=== PATIENT | female | born 1975 | race Hispanic/Latino ===

== ENCOUNTER 2019-01-01 08:37 | Emergency (ER) | payer BC ==
[2019-01-01 08:53] VITALS: RESP 20; BMI 32.1
--- NOTE | 2019-01-01 08:58 | ED PDOC ---
HPI: Trauma/Fall - HPI History Per: Patient History/Exam Limitations: no limitations Injury Occurred (Timing): Days Ago: (1) Location Of Injury: Left: Shoulder, Posterior: Back (Lumbar region) Pain Scale Rating Of: 6 Additional Complaint(s): Pt is a 43 y/o female with hx of R. Rotator cuff tear with repair (2014) presenting to ED for evaluation after falling yesterday morning and injuring her shoulder. She states she was tidying up around the house and tripped over furniture falling in her left shoulder and left side of face. She denies LOC. She states that when she got up she started experiencing left shoulder pain radiating down her arm associated with weakness. She also noticed mild low back pain which she feels is a pulled muscle. She has been taking Tylenol for the pain which minimally alleviates her pain. She denied any neck pain, headache, dizziness, jaw pain, numbness or tingling in her arm/fingers, or LE pain. PMD: Dr. Hurst <Misael Lorenzana - Last Filed: 01/02/19 08:06> Past Medical History Vital Signs: Last Vital Signs Temp 98.7 F 01/01/19 08:52 Pulse 70 01/01/19 08:52 Resp 20 01/01/19 08:52 BP 116/70 01/01/19 08:52 Pulse Ox 99 01/01/19 13:03 <Ileana Patel - Last Filed: 01/01/19 13:58> Reviewed: Historical Data, Nursing Documentation, Vital Signs Vital Signs: Last Vital Signs Temp 98.7 F 01/01/19 08:52 Pulse 70 01/01/19 08:52 Resp 20 01/01/19 08:52 BP 116/70 01/01/19 08:52 Pulse Ox 99 01/01/19 08:52 - Medical History PMH: Anxiety, Asthma - Surgical History Surgical History: No Surg Hx - Family History Family History: States: No Known Family Hx <Misael Lorenzana - Last Filed: 01/02/19 08:06> - Home Medications Home Medications: Ambulatory Orders Medication Instructions Recorded Ca/Cholecalciferol/Fe/Folic 1 1 tab PO DAILY 02/15/15 [Basic's Vitamins] Quetiapine Fumarate [Seroquel] 25 mg PO HS 02/15/15 - Allergies Allergies/Adverse Reactions: Allergies Allergy/AdvReac Type Severity Reaction Status Date / Time cefuroxime [From Ceftin] Allergy Mild RASH Verified 01/01/19 09:01 Penicillins Allergy Mild RASH Verified 01/01/19 09:01 SEAFOOD Allergy Mild RASH Uncoded 01/01/19 08:57 Physical Exam - Physical Exam Appears: Positive for: Well, No Acute Distress Skin: Positive for: Normal Color Eye Exam: Positive for: Normal appearance ENT: Positive for: Normal ENT Inspection Cardiovascular/Chest: Positive for: Regular Rate, Rhythm, Chest Non Tender Respiratory: Positive for: Normal Breath Sounds. Negative for: Crackles, Wheezing Pulses-Dorsalis Pedis (L): 2+ Pulses-Dorsalis Pedis (R): 2+ Pulses-Radial (L): 2+ Pulses-Radial (R): 2+ Back: Positive for: Muscle Spasm (Paraverebral (right side) with mild tenderness) Extremity: Positive for: Capillary Refill, Other (Left uper extremity- no gross deformities, Anterior palpable tenderness, no tenderness over cervical spine, clavicle, or humerus. Marked weakness, +Empty can test, neurovascular in tact. Difficulty raising 90 degrees above head.) DTR - Bicep (R): 2+ DTR - Bicep (L): 2+ Neurological/Psych: Positive for: Awake, Alert, Gait (normal), junior data analyst II-XII (in tact ). Negative for: Motor/Sensory Deficits, Facial Droop <Misael Lorenzana - Last Filed: 01/02/19 08:06> - ECG O2 Sat by Pulse Oximetry: 99 <Misael Lorenzana - Last Filed: 01/02/19 08:06> Medical Decision Making Medical Decision Making: Patient presents with complaints of right shoulder shoulder pain. Discussed XR results extensively with patient. <Ileana Patel Y - Last Filed: 01/01/19 13:58> Medical Decision Making: Pt is a 43 y/o female with hx of R. Rotator cuff tear with repair (2014) presenting to ED for evaluation after falling yesterday morning and injuring her shoulder. Toradol 30mg IM x1 Shoulder Xray 3 views Lumbar Xray <Misael Lorenzana - Last Filed: 01/02/19 08:06> Disposition <Ileana Patel - Last Filed: 01/01/19 13:58> - Patient ED Disposition Is Patient to be Admitted: No Counseled Patient/Family Regarding: Studies Performed, Diagnosis, Need For Followup - Disposition Disposition: Routine/Home Disposition Time: 14:00 <Neela Lorenzanagerry - Last Filed: 01/02/19 08:06> - Clinical Impression Clinical Impression: Shoulder pain, Avulsion injury of left shoulder region, Acute shoulder pain due to trauma - Disposition Referrals: Srinivasan Wiggins MD [Staff Provider] - Condition: FAIR Additional Instructions: Needs f/u with PMD and orthopedics (referral given) within 1 week, Keep sling in place until cleared by PMD or Orthopedics. Needs MRI outpatient. Return if symptoms worsen Instructions: Shoulder Pain (DC) Forms: [facility] (I[place]ic), [facility] School/Work Excuse
--- NOTE | 2019-01-01 13:36 | RAD ---
Date of service: 01/01/2019 PROCEDURE: Radiographs of the Left Shoulder HISTORY: s/p fall COMPARISON: No prior. FINDINGS: BONES: Faint hyperdensity seen at the soft tissues immediately cephalad to the greater tuberosity left humerus in a pattern that is suspicious for potential tendinosis although tiny chip or avulsion fracture is difficult to completely exclude. No cortical defect is identified to correspond to this finding however. No subluxation or dislocation identified. JOINTS: Normal. Glenohumeral and acromioclavicular joints preserved. No osteoarthritis. SOFT TISSUES: Normal. OTHER FINDINGS: None. IMPRESSION: Faint tendinosis related soft tissue calcifications are suggested cephalad to the left humeral greater tuberosity also potentially reflecting tiny chip or avulsion fractures are difficult to completely exclude. No dislocation or subluxation. No overt fracture appreciable.
--- NOTE | 2019-01-01 13:37 | RAD ---
Date of service: 01/01/2019 PROCEDURE: Radiographs of the Lumbar Spine. HISTORY: s/p fall COMPARISON: No prior. FINDINGS: BONES: Normal lumbar curvature. No fracture or spondylolisthesis appreciated. Limited diffuse lumbar spondylosis. Vertebral body and disc interspace heights are within normal limits. DISC SPACES: Unremarkable. OTHER FINDINGS: None. IMPRESSION: No fracture or spondylolisthesis identified. Normal curvature. Limited multilevel spondylosis appreciated.
[2019-01-01 14:01] VITALS: BP 124/74; PULSE 74; TEMP 98
[2019-01-02 08:07] VITALS: O2SAT 99
== END 2019-01-01 14:02 | disposition home or self-care (01) ==
LOC: H.ER 08:37
DX: M25.512 Pain in left shoulder (principal); W19.XXXA Unspecified fall, initial encounter; Y92.89 Other specified places as the place of occurrence of the external cause; Z88.0 Allergy status to penicillin; Z88.1 Allergy status to other antibiotic agents
CPT/HCPCS: 72114; 73030; 81025; 96372; 99285; J1885